=== PATIENT | male | born 1970 | race Caucasian/White ===

== ENCOUNTER 2018-04-25 22:58 | Emergency (ER) | payer OTHER ==
[~2018-04-25] VITALS: Ht 172.7 cm; Wt 101.3 kg
[2018-04-25 23:27] VITALS: Ht 172.7 cm; Wt 101.3 kg
[2018-04-26 02:44] VITALS: BP 145/98
== END 2018-04-26 02:44 | disposition home or self-care (01) ==
LOC: ED 22:58
DX: S61.412A Laceration without foreign body of left hand, initial encounter (principal); X58.XXXA Exposure to other specified factors, initial encounter; Y93.89 Activity, other specified; Y92.59 Other trade areas as the place of occurrence of the external cause; Y99.8 Other external cause status
CPT/HCPCS: 90715; J2001